=== PATIENT | female | born 1990 | race African-American/Black ===

== ENCOUNTER 2017-05-09 12:05 | Emergency (ER) | payer SELFPAY ==
[2017-05-09 16:25] VITALS: BP 106/72
== END 2017-05-09 16:46 | disposition home or self-care (01) ==
LOC: ED 12:05
DX: S72.402A Unspecified fracture of lower end of left femur, initial encounter for closed fracture (principal); S81.032A Puncture wound without foreign body, left knee, initial encounter; W34.09XA Accidental discharge from other specified firearms, initial encounter; Y93.89 Activity, other specified; Y99.8 Other external cause status; Y92.89 Other specified places as the place of occurrence of the external cause
CPT/HCPCS: 90715; J0690; J1885; Q0092